=== PATIENT | female | born 1985 | race Caucasian/White ===

== ENCOUNTER 2018-02-01 12:01 | Emergency (ER) | END 2018-02-01 14:25 | disposition home or self-care (01) ==

== ENCOUNTER 2018-08-13 09:31 | Emergency (ER) | payer MEDICAID ==
[~2018-08-13] VITALS: Ht 157.5 cm; Wt 60.9 kg
[~2018-08-13 09:31] MED LIST: ACET500C5 PO; AMOX500C2 PO; FIORICET PO; GUAI5SYR2 PO
[2018-08-13 09:34] VITALS: BP 125/62; PULSE 85; RESP 20; Ht 157.5 cm; Wt 60.9 kg
[2018-08-13] MEDS ORDERED: KETOROLAC 30 MG INJ IM STA (10:26)
[2018-08-13] MEDS ORDERED: IBUP-1542 PO (11:43)
[2018-08-13] MEDS ORDERED: CYCL10TA7 PO (11:43)
--- NOTE | 2018-08-13 11:50 | ERD ---
ER Documentation Chief Complaint Chief Complaint Complains of cough, colds and flu symptoms HPI 33-year-old female presents with pain in her left arm rating from her neck. She denies cough, fevers, chest pain, shortness of breath, weakness. Denies any inciting events except for working. Denies any history of trauma or motor otherwise of her neck. ROS All systems reviewed and are negative except as per history of present illness. Medications Home Meds Active Scripts Cyclobenzaprine Hcl* (Cyclobenzaprine Hcl*) 10 Mg Tablet, 10 MG PO TID, #20 TAB Prov:KATTY CAMARENA MD 08/13/18 Ibuprofen* (Motrin*) 600 Mg Tab, 600 MG PO Q6, #20 TAB Prov:KATTY CAMARENA MD 08/13/18 Acetamin/Butalbital/Caffeine* (Fioricet*) [id number] Tab, 1 TAB PO Q6H PRN for PAIN, #30 TAB Prov:LILIAN CHAPMAN PA-C 02/01/18 Guaifenesin-Dextromethorphan* (Robitussin* DM) 100MG/10MG/5ML Syrup, 5 ML PO Q6H PRN for COUGH for 6 Days, #120 ML 0 Refills Prov:SUZY VERMA PA-C 04/04/16 Acetaminophen* (Tylophen*) 500 Mg Capsule, 1 CAP PO Q4 PRN for PAIN AND OR ELEVATED TEMP, #30 CAP Prov:LIZBETH DARNELL PA-C 08/07/15 Amoxicillin* (Amoxicillin*) 500 Mg Cap, 500 MG PO BID for 10 Days, CAP Prov:LIZBETH DARNELL PA-C 08/07/15 Allergies Allergies: Coded Allergies: No Known Allergy (Unverified , 02/01/18) PMhx/Soc History of Surgery: Yes (tubal ligation) Anesthesia Reaction: No Hx Neurological Disorder: No Hx Respiratory Disorders: No Hx Cardiac Disorders: No Hx Psychiatric Problems: Yes (ANXIETY) Hx Miscellaneous Medical Probl: No Hx Alcohol Use: No Hx Substance Use: No Hx Tobacco Use: No Smoking Status: Never smoker FmHx Family History: No diabetes, No coronary disease, No other Physical Exam Vitals Vital Signs Date Temp Pulse Resp B/P (MAP) Pulse Ox O2 O2 Flow FiO2 Time Delivery Rate 08/13/18 98.4 85 20 125/62 97 09:34 (83) Physical Exam Const: No acute distress Head: Atraumatic Eyes: Normal Conjunctiva ENT: Normal External Ears, Nose and Mouth. Neck: Full range of motion. No meningismus. Tender left trapezius and cervical paraspinous muscles on the left. No bony tenderness or deformities. Resp: Clear to auscultation bilaterally Cardio: Regular rate and rhythm, no murmurs Abd: Soft, non tender, non distended. Normal bowel sounds Skin: No petechiae or rashes Back: No midline or flank tenderness Ext: No cyanosis, or edema Neur: Awake and alert. Normal gait. No appreciable focal neurologic deficits. Psych: Normal Mood and Affect Results 24 hrs Laboratory Tests Test 08/13/18 10:35 POC Beta HCG, Qualitative NEGATIVE Current Medications Medications Dose Sig/Cora Start Time Status Last (Trade) Ordered Route PRN Stop Time Admin Dose Reason Admin Ketorolac 30 mg ONCE STAT 08/13/18 DC 08/13/18 Tromethamine IM 10:26 10:42 (Toradol) 08/13/18 10:28 Procedures/MDM X-ray C spine 3V Interpreted by me: Bones: No fracture Joints: No dislocation Foreign body: None. Impression-normal C-spine x-ray EKG: Rate/Rhythm: Normal Sinus Rhythm. Rate equals 77 QRS, ST, T-waves: No changes consistent w/ acute ischemia Impression: No evidence of ischemia or arrhythmia Given Toradol 30 mg IM. Patient presents with signs and symptoms of left cervical radicular symptoms without signs of fracture, dislocation, deficits, bacterial infections, epidural abscess, additional emergent causes of presenting complaints. She has no history of cardiac chest pain or abdominal pain. She will be treated with ibuprofen, Flexeril, primary care follow-up and cautions. The patient was stable with no new complaints during the ER course. Clinically, there is no current evidence to suggest meningitis, sepsis, acute abdomen, pneumonia, stroke, acute coronary syndrome, pulmonary embolism, aortic dissection or any other emergent condition appearing to require further evaluation or hospitalization. Patient counseled regarding my diagnostic impression and care plan. Prior to discharge all questions answered. Pt agrees with treatment plan and understands strict return precautions. Pt is instructed to follow up with primary care provider within 24-48 hours. Precautionary instructions provided including instructions to return to the ER if not improving or for any worsening or changing symptoms or concerns. Departure Diagnosis: Primary Impression: Cervical radicular pain Additional Impression: Neck and shoulder pain Patient Instructions: Neck Pain, No Trauma, Radiculopathy, Cervical Additional Instructions: x ray y ekg normal. simptomas es del nervio d e nucha. Cheque otro vez con [place] doctor primario en el proximo schultz or regresa para mas o nueva simptomas. KATTY CAMARENA MD Aug 13, 2018 11:50
== END 2018-08-13 11:54 | disposition home or self-care (01) ==
LOC: FTE 09:31
DX: M54.12 Radiculopathy, cervical region (principal); M25.512 Pain in left shoulder; M54.2 Cervicalgia
CPT/HCPCS: 72040; 81025; J1885; 93005; 96372